=== PATIENT | female | born 1935 | race Caucasian/White ===

== ENCOUNTER 2016-09-15 00:46 | Emergency (ER) | payer MEDICARE ==
[~2016-09-15] VITALS: Ht 154.9 cm; Wt 52.6 kg
[~2016-09-15 00:46] MED LIST: APAP/HYDROCODON1 TA9 PO; AVPAK AZITHROM250 MG PO; DIAZEPAM10 M1 PO; MEDROL 4MG. DOSE4 MG PO; OMEPRAZOLE40 MG PO; PRAVASTATIN SOD10 MG PO; RANITIDINE HCL150 MG PO; SYMBICORT 10.10.2 M1 IH; VENTOLIN H0.09 MG/AC IH
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
[2016-09-15 00:58] LABS: LYMPH # 1.8 K/mm3 (0.7-4.5); LYMPH % 22.2 % (10-50.0)
[2016-09-15 01:14] LABS: HEMOGLOBIN 15.6 g/dL (12.2-16.2)
[2016-09-15 01:25] LABS: BUN 10 mg/dL (7-18)
[2016-09-15 01:26] LABS: GFR (ESTIMATED) 69 ML/MIN (59-)
--- OUTSIDE RECORDS SUMMARY | 2016-09-15 01:34 | External Medical Summary Rpt ---
Demographics Preferred Language Algerian Marital Status Unknown Synagogue Affiliation Unknown Race Unknown Ethnic Group Unknown Author Author , Organization [employer] Address Unknown Phone Unavailable Purpose Continuity of Care Document - 12-04-2013 through 2016 Immunization Name Date Route CVX Reacti Commen Provid Is Given on t er Refuse d Influe Intram 135 Histor M12744 No nza, 2015 uscula ical High r Inform Dose ation - Source Unspec ified Influe 12-04- Intram 140 Histor STEFTT No nza, 2013 uscula ical HOMAS P-Free r Inform ation - Source Unspec ified
--- OUTSIDE RECORDS SUMMARY | 2016-09-15 01:34 | External Medical Summary Rpt ---
Author Author ZAR[employer] Ruano, [employer] Organization [employer] Address Unknown Phone Unavailable
--- OUTSIDE RECORDS SUMMARY | 2016-09-15 01:34 | External Medical Summary Rpt ---
Author Author , Organization [employer] Address Unknown Phone Unavailable Care Team Providers Care Railroad Hand Name Role Phone [id number], Unavailable Unavailable [id number] CRISS ROSSI, Unavailable Unavailable CRISS ROSSI Purpose Continuity of Care Document - 04-01-2007 through 2016 Problems Code Diagnosis DOS Provider Status 54263 DIAB W/O 04-07-2007 [facility] TYPE [facility] II/UNS TYPE UNCNTRL 97909 EXTRINSIC 04-07-2007 [facility] UNSPECIFIED GROUP 36720 ESOPHAGEAL 04-07-2007 [facility] 02660 DIAB W/O 04-01-2007 [facility] II[facility] NOT [facility] STATED UNCNTRL E11.9 Type 2 diabetes mellitus without complicatio ns E78.0 Pure hypercholes terolemia F41.1 Generalized anxiety disorder G89.29 Other chronic pain G89.4 Chronic pain syndrome I10 Essential (primary) hypertensio n J44.0 CHRONIC OBSTRUCTIVE PULMON DISEASE W ACUTE LOWER RESP INFCT J44.9 Chronic obstructive pulmonary disease, unspecified M06.9 Rheumatoid arthritis, unspecified M54.9 Dorsalgia, unspecified R50.9 Fever, unspecified R52 Pain, unspecified S00.83XA CONTUSION OF OTHER PART OF HEAD, INITIAL ENCOUNTER S50.10XA CONTUSION OF UNSPECIFIED FOREARM, INITIAL ENCOUNTER Z72.0 Tobacco use Procedures Procedure DOS Code Location Performer Comment TOBACCO 97880 [place] [facility] INTERMEDI ATE 3-10 MINUTES BLD GLU A4253 [facility]6119 HOME BLD GLU MON-50 LANCETS A4259 [facility]19 Encounters Encounter Start End Date Code Location Performer Type Date OFFICE 27645 [place] [facility] 8 8 [facility] VISIT GROUP 25 MINUTES
--- OUTSIDE RECORDS SUMMARY | 2016-09-15 01:34 | External Medical Summary Rpt ---
Author Author , Organization [employer] Address Unknown Phone Unavailable Care Team Providers Care Heading Maker Name Role Phone [id number], Unavailable Unavailable [id number] CRISS ROSSI, Unavailable Unavailable CR[facility] ROSSI Purpose Continuity of Care Document - 04-01-2007 through 2016 Problems Code Diagnosis DOS Provider Status 08708 DIAB W/O 04-07-2007 [facility] TYPE [facility] II/UNS TYPE UNCNTRL 97364 EXTRINSIC 04-07-2007 [facility] UNSPECIFIED GROUP 31894 ESOPHAGEAL 04-07-2007 [facility] 51366 DIAB W/O 04-01-2007 [facility] [...] Procedure DOS Code Location Performer Comment TOBACCO [address] [place] [facility] 8 [facility] INTERMEDI ATE 3-10 MINUTES BLD GLU A4253 [facility] #6119 HOME BLD GLU MON-50 LANCETS A4259 [facility] #6119 Encounters Encounter Start End Date Code Location Performer Type Date OFFICE [address] [place] [facility] 8 8 [facility] 25 MINUTES
--- OUTSIDE RECORDS SUMMARY | 2016-09-15 01:34 | External Medical Summary Rpt ---
Demographics Preferred Language Moroccan Marital Status Unknown Orthodox Affiliation Unknown Race Unknown Ethnic Group Unknown Author Author , Organization [employer] Address Unknown Phone Unavailable Purpose Continuity of Care Document - 12-04-2013 through 2016 Immunization Name Date Route CVX Reacti Commen Provid Is Given on t er Refuse d Influe Intram 135 Histor P44781 No nza, 2015 uscula ical High r Inform Dose ation - Source Unspec ified Influe 12-04- Intram 140 Histor STEFTT No nza, 2013 uscula ical HOMAS P-Free r Inform ation - Source Unspec ified
--- OUTSIDE RECORDS SUMMARY | 2016-09-15 01:34 | External Medical Summary Rpt ---
Author Author , Organization [employer] Address Unknown Phone Unavailable Care Team Providers Care Instrumentation Technician Name Role Phone [id number], Unavailable Unavailable [id number] CRISS ROSSI, Unavailable Unavailable CR[facility] ROSSI Purpose Continuity of Care Document - 04-01-2007 through 2016 Problems Code Diagnosis DOS Provider Status 65577 DIAB W/O 04-07-2007 [facility] TYPE [facility] II/UNS TYPE UNCNTRL 98807 EXTRINSIC 04-07-2007 [facility] UNSPECIFIED GROUP 03302 ESOPHAGEAL 04-07-2007 [facility] 32782 DIAB W/O 04-01-2007 [facility] STATED UNCNTRL Procedures Procedure DOS Code Location Performer Comment TOBACCO 18470 [place] [facility] 8 [facility] INTERMEDI ATE 3-10 MINUTES LANCETS A4259 [facility] #6119 BLD GLU A4253 [facility] #6119 HOME BLD GLU WED-50 Encounters Encounter Start End Date Code Location Performer Type Date [facility] [facility] 25 MINUTES
--- OUTSIDE RECORDS SUMMARY | 2016-09-15 01:34 | External Medical Summary Rpt ---
Author Author , Organization [employer] Address Unknown Phone Unavailable Care Team Providers Care Manager Zone Name Role Phone [id number], Unavailable Unavailable [id number] CRISS ROSSI, Unavailable Unavailable CRISS ROSSI Purpose Continuity of Care Document - 04-01-2007 through 2016 Problems Code Diagnosis DOS Provider Status 78553 DIAB W/O 04-07-2007 [facility] II/UNS TYPE UNCNTRL 66618 EXTRINSIC 04-07-2007 [facility] UNSPECIFIED GROUP 56023 ESOPHAGEAL 04-07-2007 [facility] 87141 DIAB W/O 04-01-2007 [facility] II/[facility]S [facility] #6119 STATED UNCNTRL Procedures Procedure DOS Code Location Performer Comment TOBACCO 59659 [place] [facility] 8 [facility] C[facility] GROUP INTERMEDI ATE 3-10 MINUTES LANCETS A4259 [facility] #6119 BLD GLU A4253 [facility] #6119 HOME BLD GLU WED-50 Encounters Encounter Start End Date Code [facility] Per[facility] Type Date [facility] 25 MINUTES
[2016-09-15 02:07] LABS: URINE BILIRUBIN - DIPSTICK NEGATIVE (NEG); URINE BLOOD TRACE-LYSED (NEG)
--- NOTE | 2016-09-15 06:38 | RADIOLOGY REPORT PS360 ---
[id number] VIEWS HISTORY: Right-sided chest pain/rib pain PAIN ORDERING PHYSICIAN: Domingo Hoffmann MD PATIENT AGE: 80 years COMPARISON: None FINDINGS: No fracture or destructive process apparent no obvious effusion. IMPRESSION: Negative right ribs
--- NOTE | 2016-09-15 06:39 | RADIOLOGY REPORT PS360 ---
SCAPULA-RT COMPARISON: None HISTORY: Scapular pain shoulder pain TECHNIQUE: 3 views FINDINGS: There are minimal osteoarthritic changes of the acromioclavicular joint. No fracture or destructive process evident. IMPRESSION: No acute finding. Minimal osteoarthritic change acromioclavicular joint
[2016-09-15 10:40] VITALS: BP 114/57
--- NOTE | 2016-09-17 11:53 | RADIOLOGY REPORT PS360 ---
CHEST(2 VIEWS-NOT PORTABLE) HISTORY: Chest pain CP ORDERING PHYSICIAN: Domingo Hoffmann MD PATIENT AGE: 80 years COMPARISON: 06/20/2016 FINDINGS: The cardiomediastinal silhouette and pulmonary vascularity are within normal limits. There is chronic coarsening of the bronchovascular markings. No lobar consolidation or collapse evident.. No acute bony abnormalities. IMPRESSION: Chronic changes, no acute finding
== END 2016-09-15 11:44 | disposition home or self-care (01) ==
LOC: ER 00:46
PROVIDERS: Emergency Medicine
DX: S20.211A Contusion of right front wall of thorax, initial encounter (principal); K21.9 Gastro-esophageal reflux disease without esophagitis; J44.9 Chronic obstructive pulmonary disease, unspecified; Z72.0 Tobacco use
CPT/HCPCS: J2405